=== PATIENT | male | born 1955 | race Caucasian/White ===

== ENCOUNTER → 2021-03-16 | Outpatient (CLI) | payer BC | LOC: EMI 14:22 | DX: M54.5 Low back pain (principal); M51.37 Other intervertebral disc degeneration, lumbosacral region | CPT/HCPCS: 72148 ==

== ENCOUNTER → 2022-02-05 | Outpatient (CLI) | payer BC | LOC: MRI 12:26 | DX: M47.26 Other spondylosis with radiculopathy, lumbar region (principal); Z98.890 Other specified postprocedural states; Z98.1 Arthrodesis status; M54.41 Lumbago with sciatica, right side; G89.29 Other chronic pain | CPT/HCPCS: 36415; 72131; 72158; 82565; 84520; A9577 ==

== ENCOUNTER → 2022-03-15 | Outpatient (CLI) | payer BC | LOC: EXRD 09:11 | DX: N28.1 Cyst of kidney, acquired (principal) | CPT/HCPCS: 76775 ==

== ENCOUNTER → 2022-04-05 | Outpatient (CLI) | payer BC | LOC: CT 09:20 | DX: N28.1 Cyst of kidney, acquired (principal); N47.1 Phimosis; N28.9 Disorder of kidney and ureter, unspecified | CPT/HCPCS: 36415; 82565; 84520; Q9967 ==